=== PATIENT | female | born 1970 | race Caucasian/White ===

== ENCOUNTER 2018-09-06 12:03 | Emergency (ER) | payer SELFPAY ==
[2018-09-06 12:36] VITALS: BP 119/83; PULSE 67; RESP 18; TEMP 37.1; O2SAT 99
--- NOTE | 2018-09-06 13:20 | W.ED.GENAD ---
Discharge Plan Disposition Patient Disposition: HOME Condition: Good Discharge Details Chief Complaint: Cellulitis Clinical Impression: Felon Primary Care Provider: Steven Pedraza ED Provider: Dwayne June Home Meds and New Rx's Prescriptions: New clindamycin HCl 150 mg capsule 450 mg PO TID 7 Days Qty: 63 RF: 0 No Action almotriptan malate [Axert] 6.25 MG tablet 6.25 mg PO PRN RF: 0 trazodone 50 MG tablet 50 mg PO DAILY RF: 0 Discharge Instructions Instructions: Cellulitis (ED) Additional Instructions: Please take the antibiotic as directed. If you notice any spreading of the redness, please return immediately. Please follow-up with your family doctor soon as possible for reassessment. If you notice any worsening of your symptoms, or any new symptoms such as vomiting, diarrhea, fever, chills, shortness of breath, chest pain, numbness, weakness, or fainting , please return immediately to the emergency department for reevaluation. Please follow up with your primary care provider as soon as possible for reassessment and reevaluation. As always, it was a pleasure participating in your medical care today. Referrals: Steven Pedraza [Primary Care Provider] - Medical Decision Making This is a 47-year-old female who presents with signs and symptoms consistent with a felon on her right finger. She has no systemic symptoms of fever, chills, or tachycardia. The area demonstrated no tenderness on passive flexion or extension, no evidence of trauma. The area was cleaned, and then punctured with an 18-gauge needle, notable amount of purulent drainage was removed, this was cultured. After this the patient had notable improvement of her pain and symptoms. Sensation is intact. We will start the patient on clindamycin secondary to her penicillin allergy. We will culture the wound, and update her tetanus. We discussed red flags which to return the patient understands. I have extensively reviewed the treatment plan and discharge instructions with the patient and their family. I have addressed all patient concerns at this time. The patient and family was made aware of what symptoms to monitor for that would warrant a return to the emergency department. Discussed the plan with the patient and family, they demonstrate verbal understanding and agreement with our assessment and plan at this time. HPI General Date/Time Provider Initiated Documentation: 09/06/18 13:08. HPI Narrative: This is a pleasant 47-year-old female with no significant past medical history who presents for evaluation of swelling just proximal to the nailbed on her fifth finger on her right hand which is her dominant hand. She noticed it this morning. She denies any trauma, or recent injury. She denies any recent biting of the nails. She denies any systemic symptoms of fever or chills, she denies any discharge from the area. Pain is made worse with palpation, improved by nothing. She denies any history of immunocompromise, or diabetes. She has no other complaints at this time. She denies any recent surgeries, pertinent family history, or other complaints. Related Data Home Medications Medication Instructions Recorded Confirmed almotriptan malate [Axert] 6.25 mg PO PRN 03/29/16 09/06/18 trazodone 50 mg PO DAILY tab-cap 04/01/17 09/06/18 clindamycin HCl 450 mg PO TID 7 Days #63 cap 09/06/18 Previous Rx's Medication Instructions Recorded clindamycin HCl 450 mg PO TID 7 Days #63 cap 09/06/18 Allergies Allergy/AdvReac Type Severity Reaction Status Date / Time Penicillins Allergy Unknown Unverified 09/06/18 12:36 diphenhydramine HCl Allergy Swelling/Ed Unverified 09/06/18 12:36 [From Benadryl] tyson General Stated Complaint: Cellulitis ASUNCION: 3 Review of Systems Review of Systems All systems reviewed & are unremarkable except as noted in HPI and below PFSH Family History Mother No problems noted. Father No problems noted. Sister No problems noted. Medical History Migraine Social History Smoking/Tobacco Use Status: Never Surgical History Cholecystectomy Ligation of fallopian tube Exam Narrative Exam Narrative: 1.Const: Well-nourished, Well-developed, appearing stated age 2.Eyes: PERRL, no conjunctival injection, and symmetrical lids. 3.ENT: Atraumatic external nose and ears. Moist MM. Neck: Symmetric, trachea midline, No thyromegaly. 4.CVS: +S1/S2, No murmurs or gallops. Peripheral pulses 2+ and equal in all extremities. Brisk capillary refill in all extremities. 5.RESP: Unlabored respiratory effort. Clear to auscultation bilaterally. No wheezes rales or rhonchi 6.GI: Soft, Nontender/Nondistended, No hepatosplenomegaly. No guarding or rebound. 7.MSK: Normocephalic/Atraumatic, Extremities w/o deformity or ttp No cyanosis or clubbing, Normal movement of all extremities, see skin 8.Skin: Patient demonstrates evidence of a felon on her right fifth digit just proximal to the nail. Area of fluctuance, as well as purulence. No active drainage at this time. No pain or tenderness on passive or active flexion or extension of the finger. Erythema is located distal to the DIP joint, no other spreading erythema. No other abnormalities. 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 Sensation grossly intact, no focal neurologic deficits. 10.Psych: (AAO) x3. Appropriate mood and affect Course Vital Signs Temperature 37.1 C 09/06/18 12:36 Pulse 67 09/06/18 12:36 Respiratory Rate 18 09/06/18 12:36 Blood Pressure 119/83 09/06/18 12:36 Pulse Oximetry 99 09/06/18 12:36 Temperature 37.1 C 09/06/18 12:36 Temperature Source Temporal Artery Scan 09/06/18 12:36 Pulse 67 09/06/18 12:36 Respiratory Rate 18 09/06/18 12:36 Respiratory Effort 09/06/18 12:36 Blood Pressure 119/83 09/06/18 12:36 Blood Pressure Position Sitting 09/06/18 12:36 Pulse Oximetry 99 09/06/18 12:36 Oxygen Delivery Method Room Air 09/06/18 12:36 Oxygen Flow Rate 0 09/06/18 12:36
== END 2018-09-06 13:40 | disposition home or self-care (01) ==
LOC: ER 13:37
PROVIDERS: Emergency Provider Student in an Organized Health Care Education/Training Program; PCP Specialist/Technologist Athletic Trainer
DX: L03.011 Cellulitis of right finger (principal)
CPT/HCPCS: 90471; 99284; 87070; 87205

== ENCOUNTER 2019-07-01 15:13 | Outpatient (REF) | payer MEDICAID, SELFPAY ==
[2019-07-01 21:27] LABS: Anion Gap 10.7 mmol/L (3-11); BUN 12 mg/dL (7-18); CO2 24.3 mmol/L (21.0-32.0); CREATININE 0.97 mg/dL (0.55-1.02); Calcium 8.7 mg/dL (8.5-10.1); Calculated LDL 97 mg/dL; Chloride 105 mmol/L (98-107); Cholesterol 170 mg/dL (50-200); Glucose 105 mg/dL (70-100); HDL Cholesterol 62 mg/dL (40-60); Potassium 4.1 mmol/L (3.5-5.1); Sodium 140 mmol/L (136-145); Triglyceride 57 mg/dL (30-150)
== END 2019-07-01 15:33 ==
LOC: NCHCN 15:13
PROVIDERS: PCP Specialist/Technologist Athletic Trainer; Visit Provider Specialist/Technologist Athletic Trainer
DX: Z13.220 Encounter for screening for lipoid disorders (principal); Z13.228 Encounter for screening for other metabolic disorders
CPT/HCPCS: 80048; 80061; 83721

== ENCOUNTER 2019-07-08 00:47 | Outpatient (CLI) | payer MEDICAID, SELFPAY ==
--- NOTE | 2019-07-08 15:37 | DI.MAMMO_ITS ---
SYMPTOM/DIAGNOSIS: SCREENING, Z12.31, [facility] Z78.9 BILATERAL SCREENING MAMMOGRAM: Mammograms were interpreted according to the usual protocol including computer analysis with CAD system, tomosynthesis and C view imaging. Comparison is made with exams from 2016 and 2017, The breasts are composed of heterogeneously dense fibroglandular tissue, breast density category C. There are again noted to be innumerable scattered benign appearing calcifications. No suspicious masses or suspicious microcalcifications are visible. IMPRESSION: Category 2, negative mammogram with benign findings. Yearly screening mammography is recommended. Breast density category C. MQSA ASSESSMENT OF FINDINGS: Negative with benign findings. Category 2. Patient will receive a letter notifying them of these results. Bi-RADS category C. The breasts are heterogeneously dense, which may obscure small masses.
== END 2019-07-08 01:07 ==
PROVIDERS: PCP Specialist/Technologist Athletic Trainer; Visit Provider Specialist/Technologist Athletic Trainer
DX: Z12.31 Encounter for screening mammogram for malignant neoplasm of breast (principal)
CPT/HCPCS: 77063; 77067

== ENCOUNTER 2019-08-03 16:27 | Outpatient (REF) | payer MEDICAID, SELFPAY ==
--- NOTE | 2019-08-03 15:25 | PAPFT_PTH ---
PATIENT: MONTRELL HWANG LOC: [facility] U#:[id number] AGE/SX: 48/F ROOM: RE08/03/[address]: Cassie Jhaveri NP : 1970 BED: DIS: 08/03/2019 SPEC #: [id number] RECD: 08/03/19 17:38 STATUS: BRIDGER REEvelina #: [id number] CHARANJIT: 08/03/19 15:[address]: Cassie Jhaveri NP DEPT: [facility] Cytology RECD BY: Deanne Soto ENTERED: 08/03/19 17:38 SP TYPE: PAPFT OTHR DR: Steven Pedraza Tissues: 1 - CX/ENDOCX FOR PAP SMEARS Procedures: PAP THIN PREP/UVM Screening HPV DNA PROBE Comments: [id number]
== END 2019-08-03 16:47 ==
LOC: LBN 16:27
PROVIDERS: PCP Specialist/Technologist Athletic Trainer; Visit Provider Nurse Practitioner Women's Health
DX: Z12.4 Encounter for screening for malignant neoplasm of cervix (principal); Z11.51 Encounter for screening for human papillomavirus (HPV)
CPT/HCPCS: 88142; 87624

== ENCOUNTER 2019-08-30 17:13 | Outpatient (REF) | payer MEDICAID, SELFPAY ==
--- NOTE | 2019-08-30 16:30 | ENDO_PTH ---
PATIENT: MONTRELL HWANG LOC: [facility] U#:[id number] AGE/SX: 48/F ROOM: RE08/30/[address]: Addi Soriano MD : 1970 BED: DIS: 08/30/2019 SPEC #: [id number] RECD: 08/30/19 17:57 STATUS: BRIDGER REEvelina #: [id number] CHARANJIT: 08/30/19 16:[address]: Addi Soriano DEPT: Surgical Specimen RECD BY: Daenne Soto ENTERED: 08/30/19 18:00 SP TYPE: Endo OTHR DR: Steven Pedraza NP Tissues: 1 - ENDOCERVICAL BX/CURRETTE 2 - ENDOMETRIUM BX/CURRETTE Procedures: GROSS AND MICRO LEVEL 4 Comments: [id number]
== END 2019-08-30 17:33 ==
LOC: LBN 17:13
PROVIDERS: PCP Specialist/Technologist Athletic Trainer; Visit Provider Obstetrics & Gynecology
DX: R87.612 Low grade squamous intraepithelial lesion on cytologic smear of cervix (LGSIL) (principal); N87.0 Mild cervical dysplasia; N85.01 Benign endometrial hyperplasia; R87.810 Cervical high risk human papillomavirus (HPV) DNA test positive
CPT/HCPCS: 88305

== ENCOUNTER 2019-09-20 01:14 | Outpatient (CLI) | payer MEDICAID, SELFPAY ==
--- NOTE | 2019-09-20 13:46 | DI.US_ITS ---
EXAM: US PELVIS AND TRANSVAGINAL CLINICAL HISTORY: AUB N93.9 TECHNIQUE: Ultrasound performed using standard protocol. COMPARISON: LEFT BREAST ULTRASOUND from 04/26/2016 FINDINGS: The uterus measures 7.5 cm long x 3.6 cm AP x 4.1 cm transverse. Endometrial stripe is within normal limits at 4.4 mm. There is an intrauterine device seen within the endometrial canal. The right ovary measures 2.3 x 1.3 x 1.7 cm. The left ovary measures 3.3 x 2.0 x 1.8 cm. There are s mall follicular cysts seen bilaterally. There is blood flow to both ovaries. No evidence of torsion is present. No free pelvic fluid or hydronephrosis is present. IMPRESSION: Intrauterine device in good position. Unremarkable pelvic ultrasound.
== END 2019-09-20 01:34 ==
PROVIDERS: PCP Specialist/Technologist Athletic Trainer; Visit Provider Obstetrics & Gynecology
DX: N93.9 Abnormal uterine and vaginal bleeding, unspecified (principal); Z97.5 Presence of (intrauterine) contraceptive device; N83.01 Follicular cyst of right ovary; N83.02 Follicular cyst of left ovary
CPT/HCPCS: 76830; 76856